=== PATIENT | female | born 1990 | race Caucasian/White ===

== ENCOUNTER 2017-05-19 21:04 | Emergency (ER) | payer OTHER ==
[~2017-05-19] VITALS: Ht 160 cm; Wt 59.0 kg
[~2017-05-19 21:04] MED LIST: SYMBYAX PO; TYLENOL #3 PO; VOLTAREN75 MG PO; VYVANSE20 MG; ZOFRANODT SL
== END 2017-05-19 23:00 | disposition home or self-care (01) ==
LOC: CED 21:04
DX: T40.1X1A Poisoning by heroin, accidental (unintentional), initial encounter (principal); F17.200 Nicotine dependence, unspecified, uncomplicated
CPT/HCPCS: 99284